=== PATIENT | female | born 1995 | race Caucasian/White ===

== ENCOUNTER → 2017-05-10 | Outpatient (CLI) | payer OTHER | LOC: BMCIMAGING 07:49 | DX: N94.6 Dysmenorrhea, unspecified (principal); Z97.5 Presence of (intrauterine) contraceptive device ==

== ENCOUNTER 2017-07-29 12:57 | Emergency (ER) | payer OTHER ==
[2017-07-29 13:40] LABS: PLATELET COUNT 201 10^3/uL (150-400)
--- NOTE | 2017-07-29 14:53 | EDPHY ---
H & P Smoking Status: Never smoked Time Seen by Provider: 07/29/17 13:45 HPI/ROS: CHIEF COMPLAINT: Blood in stool HISTORY OF PRESENT ILLNESS: 22-year-old female presents to the emergency department by private vehicle with blood in his stool. The patient had an episode of diarrhea with some blood around 10 o'clock this morning and about 20 or 30 min later had another episode of this. She describes some lower abdominal cramping. She does have a history of intermittent constipation and diarrhea. She has never seen a surgical supply assistant for this. She has strong family history of irritable bowel syndrome. No fevers or chills. No chest pain or difficulty breathing. No back pain. No urinary symptoms. She was treated with antibiotics for urinary tract infection in April of 2017. Denies any reported trauma. No known ill contacts. No recent travel. REVIEW OF SYSTEMS: Constitutional: No fever, no chills. Eyes: No double or blurry vision. ENT: No sore throat. Respiratory: No cough, no shortness of breath. Cardiac: No chest pain. Gastrointestinal: As above. No vomiting. Genitourinary: No dysuria. Musculoskeletal: No neck or back pain. Skin: No rashes. Neurological: No headache. (NanyAbby) Past Medical/Surgical History: Attention deficit hyperactivity disorder, anxiety, endometriosis, asthma (Tanja Ayonrina Pierre) Social History: Single (Abby Ayon) Physical Exam: General Appearance: Alert, no distress. Afebrile. Eyes: Pupils equal and round. Extraocular motions are all intact. ENT: Mouth: Mucous membranes moist. Respiratory: No wheezing, rhonchi, or rales, lungs are clear to auscultation. Cardiovascular: Regular rate and rhythm. Gastrointestinal: Abdomen is soft. Mild tenderness with palpation in the lower abdomen. There is no rebound, guarding or masses noted. No CVA tenderness bilaterally. Neurological: Alert and oriented x 3, cranial nerves II through XII grossly intact Rectal exam: No external hemorrhoids noted. Normal sphincter tone. No palpable internal hemorrhoids. Normal stool color. Skin: Warm and dry, no rashes. Musculoskeletal: Nontender to palpate along the cervical, thoracic or lumbar spine. Neck is supple. Extremities: Full range of motion and no peripheral edema. Psychiatric: Patient is oriented X 3, there is no agitation. (Abby Ayon) Constitutional: Initial Vital Signs Temperature (C) 37.3 C 07/29/17 13:06 Heart Rate 98 07/29/17 13:06 Respiratory Rate 16 07/29/17 13:06 Blood Pressure 141/92 H 07/29/17 13:06 O2 Sat (%) 97 07/29/17 13:06 O2 Delivery Mode Room Air Allergies/Adverse Reactions: No Known Allergies Allergy (Verified 11/29/12 01:30) Home Medications: Medication Instructions Recorded Advair 250/50 (*) 07/29/17 Ritalin 5mg (*) 07/29/17 Ventolin Hfa 07/29/17 Medical Decision Making ED Course/Re-evaluation: 22-year-old female presents to the emergency department with concerns about blood in her stool. Stool was guaiac negative. Laboratory studies including CBC was all within normal limits. The patient does have some mild lower abdominal cramping. I offered imaging including CT scan the patient declined. I think this is reasonable. She was given referral to surgical supply assistant. She was instructed to return if she developed recurring diarrhea recurring blood or fever or if she felt worse in any way. The patient was monitored for over 2 hr in the emergency department had no recurring episodes of diarrhea or blood in her stool. (Nneka Ayona Pierre) I did not see this patient while she was in the emergency department. However her care was discussed with the PA while the patient was in the department. I agree with treatment plan and management (Peterson Kuhn) Differential Diagnosis: Including but not limited to hemorrhoids, colitis, acute appendicitis, irritable bowel syndrome, anemia (Abby Ayon) - Data Points Laboratory Results: Laboratory Results 07/29/17 13:20 Departure - Departure Disposition: Home, Routine, Self-Care Clinical Impression: Hematochezia Condition: Good Instructions: Abdominal Pain (ED) Additional Instructions: You have no blood detected in your stool. Abdominal Pain: Return to the Emergency Department immediately for increasing pain, fever, vomiting, or if not completely better in 8-12 hours. Referrals: Hilda Mayers NP [Primary Care Provider] - As per Instructions Kyle Kennedy MD [[facility] Primary Care Provider] - As per Instructions ([facility] surgical supply assistant) Gerardo Eaton MD [Medical Doctor] - As per Instructions (Youth Director on-call)
[2017-07-29 15:04] VITALS: BP 112/70
== END 2017-07-29 15:05 | disposition home or self-care (01) ==
DX: K92.1 Melena (principal); J45.909 Unspecified asthma, uncomplicated

== ENCOUNTER 2018-01-02 10:35 | Emergency (ER) | payer OTHER ==
[2018-01-02] MEDS ORDERED: NS 500 ML IV ONE (11:20)
--- NOTE | 2018-01-02 11:33 | EDPHY ---
H & P Time Seen by Provider: 01/02/18 10:52 HPI/ROS: HPI Concerned about high blood pressure and heart pounding. 22-year-old female by private vehicle with her friend. This patient reports she has a history of dysautonomia. She is concerned because she thinks that her blood pressure has been unusually high since yesterday evening. She also states that she has a sensation of her heart pounding out of her chest. She denies any shortness of breath. No chest pain. She has not had a cough. No fever. She reports that she has had the symptoms in the past. She reports that these symptoms resolve and her blood pressure comes down with IV fluid. She spoke with her primary care physician this morning and was reportedly told to come to the emergency department to get IV fluid for this condition. ROS: Constitutional: No fever, no chills. No weakness. As above. Eyes: No discharge. No changes in vision. ENT: No sore throat. No nasal congestion or rhinorrhea. Respiratory: No cough. No shortness of breath. Cardiac: No chest pain, as above. Gastrointestinal: No abdominal pain, no vomiting, no diarrhea. Genitourinary: No hematuria. No dysuria or increased frequency with urination. Musculoskeletal: No back pain. No neck pain. No myalgias or arthralgias. Skin: No rashes. Neurological: No headache. No focal weakness or altered sensation. Past medical history: As above. Attention deficit hyperactivity disorder, endometriosis, anxiety, asthma. Social history: Nonsmoker. Here with her friend. No alcohol. Physical Exam: General Appearance: Alert, anxious, emotionally labile. This patient is responding to questions appropriately and in full sentences. This patient appears well-hydrated and well-nourished. Eyes: Pupils equal and round no pallor or injection. No lid edema, erythema or injection. Respiratory: There are no retractions, lungs are clear to auscultation with good air movement bilaterally. Cardiovascular: Regular rate and rhythm. No murmur. Gastrointestinal: Abdomen is soft and nontender, no masses, bowel sounds normal. No focal tenderness at McBurney's point. No Guzman sign. Neurological: Motor sensory function is grossly intact. Cranial nerves are normal. Gait is normal. Skin: Warm and dry, no rashes. Musculoskeletal: Neck is supple and nontender. Extremities are symmetrical. All joints range without pain or impingement. Psychiatric: No agitation. No depression. Database: EKG: Imaging: Procedures: Emergency department course: Triage vital signs reviewed. She is mildly hypertensive. Triage vital signs are otherwise normal. On my evaluation her blood pressure is 128/89. Her personnel monitor shows a narrow complex sinus rhythm with ventricular rate of 72. I explained to her that I do not think she needed an IV or IV fluids. She became tearful. After consultation with her nurse we decided to place an IV and give her 500 cc of IV normal saline. I feel that her presentation is consistent with a psychosomatic etiology. She was given her 500 cc of IV normal saline. I do not feel there is an indication for further emergency department workup at this time. She now feels comfortable going home with her friend. Follow-up and return to emergency department precautions were reviewed with her. All of her questions were answered. She was discharged in good condition with her friend. Differential Diagnosis: The differential diagnosis on this patient includes but is not limited to panic attack, anxiety reaction. Hypertensive emergency, hypertensive urgency unlikely. This represents a partial list of diagnoses considered. These considerations are based on history, physical exam, past history, reassessment and diagnostic testing. Smoking Status: Never smoked Constitutional: Initial Vital Signs Temperature (C) 37.4 C 01/02/18 10:37 Heart Rate 84 01/02/18 10:37 Respiratory Rate 18 01/02/18 10:37 Blood Pressure 142/91 H 01/02/18 10:37 O2 Sat (%) 98 01/02/18 10:37 O2 Delivery Mode Room Air Allergies/Adverse Reactions: levocetirizine [From Xyzal] Allergy (Verified 01/02/18 10:43) sertraline [From Zoloft] Allergy (Verified 01/02/18 10:43) Home Medications: Medication Instructions Recorded Advair 250/50 (*) 07/29/17 Ritalin 5mg (*) 07/29/17 Ventolin Hfa 07/29/17 Medical Decision Making - Data Points Medications Given: Discontinued Medications Sodium Chloride (Ns) 500 mls @ 0 mls/hr IV EDNOW ONE; Wide Open PRN Reason: Protocol Stop: 01/02/18 11:21 Last Admin: 01/02/18 11:21 Dose: 500 mls Departure - Departure Disposition: Home, Routine, Self-Care Clinical Impression: Anxiety Condition: Good Instructions: Anxiety (ED) Additional Instructions: Read and follow provided instructions. Follow-up with your primary care physician in 1-2 days for re-evaluation. Take your medication as prescribed. Return to the emergency department for worsening symptoms or other serious concerns. Referrals: Francisca Hayden MD [Primary Care Provider] - As per Instructions
[2018-01-02 11:38] VITALS: BP 115/73
== END 2018-01-02 11:44 | disposition home or self-care (01) ==
DX: F41.9 Anxiety disorder, unspecified (principal)

== ENCOUNTER 2018-03-01 07:56 | Day surgery (SDC) | payer OTHER ==
--- NOTE | 2018-03-01 06:23 | PDGENHP ---
History and Physical History and Physical: Assessment and Plan: 1. Endometriosis of pelvic peritoneum Leena has a history of endometriosis on laparoscopy. Although not much was seen her symptoms are concerning for recurrent disease. She has failed medical management. We reviewed all conservative and surgical options. She is interested in scheduling laparoscopy with possible robotic excision of endometriosis. She likely will need to wait until February due to her other obligations. 2. Dysmenorrhea 3. Deep dyspareunia Subjective: Patient ID: Leena Finley is a 22 y.o. female who presents to [facility] for endometriosis. HPI Leena iFnley presents for a preoperative visit. She is scheduled for a robotic excision of endometriosis. The risks, benefits, and alternatives were presented and informed consent was obtained. 40 minutes of this 40 minute appointment was spent counceling, reviewing the procedure in detail, and discussing the preoperative and postoperative instructions. Below is a copy of our prior visit note. Leena is a 22-year-old 0 woman who lives in [place]. She has a long history of painful menses beginning with menarche at age 10. She has a history of heavy and painful menses. She has used control pills in the past which did not adequately control her symptoms. About 4 years ago she was started on a Mirena which has helped reduce the flow. Her symptoms started coming back after about 3 years and her practitioner placed a new Mirena in July 2016. After about 6 months the pain seemed to increase again. She feels a sharp cramping constant pain which is worse with her menses. He rates radiates down her legs. She alternates between constipation and diarrhea which is worse with her menses. She has deep dyspareunia. Her symptoms are worse the week before and during her menses. She also complains of a great deal of nausea, bloating, and back pain with her menses. This has slightly improved with changes in her diet. She underwent a laparoscopy in 2010 in [place] when the physician found some endometriosis in the posterior uterus which was ablated. 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 She is being worked up for dysautonomia. PastMedicalHistory Past Medical History: Diagnosis Date ADHD Asthma Asthma Endometriosis Endometriosis Hypotension Uterine anomaly Endometriosis PastSurgicalHistory Past Surgical History: Procedure Laterality Date LAPAROSCOPY 2010 PELVIC LAPAROSCOPY 2011 Ablation CURRENT MEDICATIONS: Current Outpatient Medications Medication Sig albuterol (PROVENTIL,VENTOLIN) 2 mg/5 mL syrup Take 2 mg as instructed 4 times daily as needed for shortness of breath. beclomethasone (QVAR) 40 mcg/actuation inhaler Inhale 1 puff into the lungs daily. Cholecalciferol, Vitamin D3, (VITAMIN D-3) 2,000 unit tablet Take 2,000 Units by mouth daily. cromolyn (GASTROCROM) 100 mg/5 mL solution TK 1 AMPULE 30 MINUTES PRIOR TO MEALS UP TO QID IF NEEDED fludrocortisone (FLORINEF) 0.1 mg tablet Take 1 tablet by mouth daily for Symptomatic Orthostatic Hypotension. levonorgestrel (MIRENA) 20 mcg/24 hr (5 years) IUD 52 mg by Intrauterine route continuous device. LORazepam (ATIVAN) 1 mg tablet Take 1 mg by mouth once daily as needed for anxiety. methylphenidate HCl (RITALIN LA) 20 mg 24 hr capsule Take 20 mg by mouth every morning. methylphenidate HCl (RITALIN) 10 mg tablet Take 5 mg by mouth daily as needed. propranolol (INDERAL) 10 mg tablet Take 1 tablet by mouth 3 times daily for Paroxysmal Supraventricular Tachycardia. sodium chloride-potassium chloride (THERMOTABS) per tablet Take 1 tablet by mouth 3 times daily. No current facility-administered medications for this visit. ALLERGIES: Levocetirizine and Zoloft [sertraline] I have reviewed, verified and agree with the past medical, surgical, , family, social and ROS history as documented by the RN today. Objective: Vital Signs: Visit Vitals Ht 1.524 m (5') Wt 52.9 kg (116 lb 9.6 oz) LMP 02/08/2018 Comment: spotting only on IUD BMI 22.77 kg/m Physical Exam Gen: This is an alert, well developed woman in no distress. Neuro: She moves all extremities. Psych: She is appropriate, oriented, with normal affect. Neck: No thyroid enlargement, adenopathy, or tenderness. Lungs: Clear to ascultation, no wheezes or rales. Heart: Regular rate and rhythm without obvious murmurs. Abdomen: Soft, non-tender, without guarding, rebound, or masses. Extremities: No edema or cyanosis. Pelvic: Normal external genitalia. Non-gaping introitus, vagina without discharge, adequately estrogenized, no significant prolapse. Cervix without lesions or discharge. Uterus normal sized, mobile, non-tender. Adnexa non- tender without enlargement. The pelvic floor muscles are tender. She has tenderness surrounding the cervix and the posterior cul-de-sac. No obvious nodularity is palpable. DATA: I have reviewed the pertinent medical records. TIME/COMMUNICATION: I personally spent a total of 60 minutes. Of that 40 minutes was counseling/ coordination of patient's care. See my note above for details. Jason Christensen MD Board Certified Female Pelvic Medicine and Reconstructive Surgery Director of Minimally Invasive Gynecologic Surgery, [facility] Surgeon in Minimally Invasive Gynecologic Surgery [facility] Surgeon in Robotic Surgery
[2018-03-01] MEDS ORDERED: PHENAZOPYRIDINE HCL 200 MG TAB PO ONE (08:01)
[2018-03-01] MEDS ORDERED: GABAPENTIN 300 MG CAP PO ONE (08:01)
[2018-03-01] MEDS ORDERED: ACETAMINOPHEN 500 MG TAB PO ONE (08:01)
[2018-03-01] MEDS ORDERED: ceFAZolin 2 GM/DEXTROSE 100 ML IV ONE (08:01)
[2018-03-01] MEDS ORDERED: LIDOCAINE 1% 2 ML INJ ID PRN (08:02)
[2018-03-01] MEDS ORDERED: LR 1,000 ML IV ONE (08:02)
[2018-03-01] MEDS ORDERED: fentaNYL 100 MCG/2 ML INJ ONE ×4 (08:26→11:46)
[2018-03-01] MEDS ORDERED: PROPOFOL 200 MG/20 ML VIAL ONE (08:26)
[2018-03-01] MEDS ORDERED: LIDOCAINE 2% 5 ML SDV ONE (08:27)
[2018-03-01] MEDS ORDERED: ROCURONIUM 50 MG/5 ML VIAL ONE ×2 (08:27→10:02)
--- NOTE | 2018-03-01 08:41 | PDHPUP ---
History & Physical Update H&P update statement: This history and physical update is based on an assessment of the patient which was completed after admission or registration (within 24 hours), but prior to the surgery/procedure. H&P update: H&P reviewed & patient examined, no change in patient's condition since H&P completed
[2018-03-01] MEDS ORDERED: MIDAZOLAM 2 MG/2 ML VIAL IVP ONE (08:58)
[2018-03-01] MEDS ORDERED: BUPIVACAINE/EPI 0.5% 30 ML SDV ONE (09:14)
[2018-03-01] MEDS ORDERED: DEXAMETHASONE 4 MG/ML VIAL ONE (09:32)
[2018-03-01] MEDS ORDERED: SUGAMMADEX SODIUM 200 MG/2 ML VIAL IVP ONE (09:33)
[2018-03-01] MEDS ORDERED: KETOROLAC 30 MG/1 ML SDV ONE (09:33)
[2018-03-01] MEDS ORDERED: ONDANSETRON 4 MG/2 ML VIAL ONE ×2 (09:33→14:16)
[2018-03-01] MEDS ORDERED: HYDROmorphONE/DILAUDID 2 MG/ML INJ IVP PRN (10:05)
[2018-03-01] MEDS ORDERED: PROMETHAZINE HCL 25 MG/ML INJ IVP PRN (10:05)
[2018-03-01] MEDS ORDERED: oxyCODONE IR 5 MG TAB PO PRN (10:05)
[2018-03-01] MEDS ORDERED: LR 500 ML IV PRN (10:05)
[2018-03-01] MEDS ORDERED: NALOXONE HCL 0.4 MG/ML INJ IVP PRN (10:05)
[2018-03-01] MEDS ORDERED: HYDROCODONE/APAP 5/325 TAB PO PRN (10:05)
[2018-03-01] MEDS ORDERED: ONDANSETRON 4 MG/2 ML VIAL IVP PRN (10:05)
[2018-03-01] MEDS ORDERED: DIAZEPAM 5 MG/ML 1 ML SYR IVP PRN (10:05)
[2018-03-01] MEDS ORDERED: ALBUTEROL 3 ML DEYVIAL IH PRN (10:05)
[2018-03-01] MEDS ORDERED: ACETAMINOPHEN 500 MG TAB PO PRN (10:05)
--- NOTE | 2018-03-01 10:05 | POSTANESTH ---
Post Anesthetic Evaluation Cardiovascular Status: Normal, Stable Respiratory Status: Normal, Stable Level of Consciousness/Mental Status: Can Participate in Eval, Mildly Sleepy, Arousable Pain Control: Adequate, Prn Tx Ordered Nausea/Vomiting Control: Adequate, Prn Tx Ordered Complications Possibly Related to Anesthesia: None Noted
--- NOTE | 2018-03-01 10:05 | PDANEPAE ---
ANE History of Present Illness endometriosis ANE Past Medical History - Cardiovascular History Hx Hypertension: No Hx Arrhythmias: Yes Hx Chest Pain: No Hx Coronary Artery / Peripheral Vascular Disease: No Hx CHF / Valvular Disease: No Hx Palpitations: No Cardiovascular History Comment: "inappropriate sinus tachycardia". 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 possible institial cystitis - Liver History Hx Hepatic Disorders: No - Neurological & Psychiatric Hx Hx Neurological and Psychiatric Disorders: Yes Neurological / Psychiatric History Comment: anxiety disorder. ADHD. ADD. PTSD - Cancer History Hx Cancer: No - Congenital Disorder History Hx Congenital Disorders: No - GI History Hx Gastrointestinal Disorders: Yes Gastrointestinal History Comment: gastrointestinal issues- lots of dietary restrictions. fluctuates between diarrhea and constipation - Other Health History Other Health History: possible mast cell activation syndrome- being worked up by statement distribution clerk- she will bring paperwork - Chronic Pain History Chronic Pain: Yes (abd/ pelvic pain) - Surgical History Prior Surgeries: 2011 lap endometrial ablation ANE Review of Systems Review of systems is: negative Review of Systems: - Exercise capacity METS (RN): 4 METS ANE Patient History - Allergies Allergies/Adverse Reactions: gluten Allergy (Verified 02/28/18 16:03) levocetirizine [From Xyzal] Allergy (Verified 02/28/18 15:55) Anaphylaxis sertraline [From Zoloft] Allergy (Verified 02/28/18 15:55) suicidal thoughts - Home Medications Home medications: home medication list seen and reviewed Home Medications: Ritalin 5mg (*) 07/29/17 [Last Taken 02/28/18] Albuterol Sulfate 02/28/18 [Last Taken 02/26/18] Chromolyn Orally Before Meals 02/28/18 [Last Taken 02/28/18 18:00] Fludrocortisone Acetate 02/28/18 [Last Taken 02/28/18 22:00] LORAZEPAM PRN 02/28/18 [Last Taken 02/22/18] MIRENA 02/28/18 [Last Taken Unknown] Propranolol HCl 02/28/18 [Last Taken 03/01/18 06:30] Qvar Redihaler 02/28/18 [Last Taken 03/01/18 06:30] THERMOTABS TABLET 02/28/18 [Last Taken 02/27/18] Vitamin D3 02/28/18 [Last Taken 02/28/18 22:00] - NPO status NPO Since - Liquids (Date): 02/28/18 NPO Since - Liquids (Time): 21:00 NPO Since - Solids (Date): 02/28/18 NPO Since - Solids (Time): 21:00 - Anes Hx Anes Hx: no prior problems - Smoking Hx Smoking Status: Never smoked - Family Anes Hx Family Hx Anesthesia Complications: none ANE Labs/Vital Signs - Vital Signs Blood Pressure: 118/85 Heart Rate: 84 Respiratory Rate: 18 O2 Sat (%): 97 Height: 152.4 cm Weight: 53.07 kg ANE Physical Exam - Airway Neck exam: FROM Mallampati Score: Class 1 Mouth exam: normal dental/mouth exam - Pulmonary Pulmonary: no respiratory distress - Cardiovascular Cardiovascular: regular rate and rhythym - ASA Status ASA Status: II ANE Anesthesia Plan Anesthesia Plan: general endotracheal anesthesia Urgent/Emergent Case: Cristobal arenas completed preop but documented later for safe timely pt care
--- NOTE | 2018-03-01 10:57 | POSTOPPROG ---
Post Op Note Date of Operation: 03/01/18 Surgeon: Jason Christensen Optical Scientist: Ivonne Stevens Anesthesia: GET(General Endotracheal) Pre-op Diagnosis: Endometriosis Post-op Diagnosis: Same Procedure: Robotic excision of endo, bilat ureterolysis and ovarian pexy Findings: Endo Inf/Abcess present in the surg proc area at time of surgery?: No EBL: Minimal Complications: None
[2018-03-01] MEDS: fentaNYL 100 MCG/2 ML INJ IVP PRN ×3 (11:10→11:47)
--- NOTE | 2018-03-01 12:53 | GOP ---
DATE OF OPERATION: 03/01/2018 SURGEON: Jason Christensen MD RIB CUTTER: Ivonne Stevens CFA. ANESTHESIA: General. PREOPERATIVE DIAGNOSIS: 1. Endometriosis. 2. Dysmenorrhea. 3. Cyclic pelvic pain. 4. Urinary frequency. POSTOPERATIVE DIAGNOSIS: 1. Endometriosis. 2. Dysmenorrhea. 3. Cyclic pelvic pain. 4. Urinary frequency. PROCEDURE PERFORMED: 1. Robotic excision of endometriosis in anterior and posterior cul-de-sac and bilateral pelvic side solano. 2. Bilateral ureterolysis. 3. Bilateral ovarian pexy. 4. Cystoscopy. FINDINGS: SPECIMENS: Pelvic peritoneum with endometriosis. ESTIMATED BLOOD LOSS: Scant. DESCRIPTION OF PROCEDURE: The patient was taken to the operating room where she was identified. Gen eral anesthesia was administered and found to be adequate. She was placed in the lithotomy position and prepared and draped in normal sterile fashion. A Rizvi catheter was placed in her bladder. A Hu lka tenaculum was placed in the uterus for manipulation. A 1 cm infraumbilical incision was made with a scalpel. The Veress needle with CO2 gas flowing was a dvanced into the peritoneal cavity. The abdomen was then insufflated with carbon dioxide gas. The 1 2 mm trocar followed by the laparoscope were then inserted. The upper abdomen was unremarkable. The re was no endometriosis on either diaphragm or upper abdominal bowel. She did have some endometriosi s on the right lower abdominal wall just above the pelvic brim. There were multiple areas of endomet riosis in both anterior and posterior cul-de-sac and both pelvic sidewalls overlying both ureters. S he had minimal disease of the uterus and no significant disease at all on either ovary. Two lateral ports were placed in the right, 1 on the left under direct visualization. The then was p laced in Trendelenburg position and the da Luís robot docked on the left side. The instruments were then brought into the abdominal cavity under direct visualization. The anterior cul-de-sac peritoneum was completely excised. The lesions on the right lower abdominal wall were excised. A bilateral ovariopexy was then performed by attaching each ovary to the ipsilate ral round ligaments near the internal inguinal ring with 3-0 Vicryl Rapide suture. The posterior cul-de-sac peritoneum was then excised from the distal rectum up to the cervix and late rally to the uterosacral ligaments. A bilateral ureterolysis was required given the endometriosis ov erlying both ureters. The peritoneum at the pelvic brims was incised. The ureters were gently disse cted free and lateralized off the overlying peritoneum and endometriosis from the pelvic brim all the way down to the uterine arteries. Once this was accomplished, the entire pelvic sidewall peritoneum was completely excised. The pelvis was then irrigated with sterile saline. Hemostasis was present. The robot was then undoc ked. The fascia was closed with 0 Vicryl. The skin with 4-0 Monocryl. Cystoscopy was then performed. No Hunner's ulcers or other pathology was seen to explain the patient 's urinary frequency other than the endometriosis on the peritoneal side of the bladder. Both ureter s had vigorous jets of urine. Anesthesia was reversed and the patient taken to the PACU awake, in st able condition. COMPLICATIONS: None. DISPOSITION: Patient stable to PACU. /[id number]/MODL
[2018-03-01 14:02] VITALS: BP 120/82
== END 2018-03-01 14:50 | disposition home or self-care (01) ==
LOC: FSGY 07:56
PROVIDERS: ATTEND Obstetrics & Gynecology
PROC: 0TJ98ZZ Inspection of Ureter, Via Natural or Artificial Opening Endoscopic (ICD-10-PCS; principal; 2018-03-01 09:30)
PROC: 8E0W4CZ Robotic Assisted Procedure of Trunk Region, Percutaneous Endoscopic Approach (ICD-10-PCS; principal; 2018-03-01 09:30)
PROC: 0UBF4ZX Excision of Cul-de-sac, Percutaneous Endoscopic Approach, Diagnostic (ICD-10-PCS; principal; 2018-03-01 09:30)
PROC: 0DBW4ZX Excision of Peritoneum, Percutaneous Endoscopic Approach, Diagnostic (ICD-10-PCS; principal; 2018-03-01 09:30)
DX: N80.3 Endometriosis of pelvic peritoneum (principal); N94.6 Dysmenorrhea, unspecified; J45.909 Unspecified asthma, uncomplicated; F90.1 Attention-deficit hyperactivity disorder, predominantly hyperactive type; R35.0 Frequency of micturition
CPT/HCPCS: J0690; J1100; J1885; J2250; J2405; J2704; J3010

== ENCOUNTER → 2018-05-05 | Outpatient (CLI) | payer OTHER | LOC: BMCIMAGING 07:46 | PROVIDERS: ATTEND Allergy & Immunology Allergy | DX: R63.4 Abnormal weight loss (principal); D89.40 Mast cell activation, unspecified; K76.0 Fatty (change of) liver, not elsewhere classified ==

== ENCOUNTER 2018-08-29 09:33 | Day surgery (SDC) | payer OTHER | END 2018-08-29 17:53 | disposition home or self-care (01) | LOC: FSGY 09:33 ==